=== PATIENT | female | born 1980 | race Two or more races ===

== ENCOUNTER 2021-05-04 14:17 | Emergency (ER) | payer OTHER ==
[~2021-05-04] VITALS: Ht 152.4 cm; Wt 55.8 kg
[2021-05-04] MEDS ORDERED: KETO10TA2 PO (16:16)
[2021-05-04] MEDS ORDERED: NORFLEX100MG PO (16:16)
== END 2021-05-04 18:00 | disposition home or self-care (01) ==
LOC: ER 14:17
DX: S16.1XXA Strain of muscle, fascia and tendon at neck level, initial encounter (principal); X58.XXXA Exposure to other specified factors, initial encounter; Y93.B9 Activity, other involving muscle strengthening exercises; Y92.019 Unspecified place in single-family (private) house as the place of occurrence of the external cause

== ENCOUNTER 2021-11-22 13:00 | Emergency (ER) | payer OTHER ==
[~2021-11-22] VITALS: Ht 154.9 cm; Wt 55.3 kg
[~2021-11-22 13:00] MED LIST: KETO10TA2 PO; NORFLEX100MG PO
== END 2021-11-22 18:01 | disposition home or self-care (01) ==
LOC: ER 13:00
DX: R10.2 Pelvic and perineal pain (principal); N83.209 Unspecified ovarian cyst, unspecified side

== ENCOUNTER 2021-12-25 21:19 | Emergency (ER) | payer OTHER ==
[~2021-12-25] VITALS: Ht 154.9 cm; Wt 57.2 kg
== END 2021-12-25 22:53 | disposition home or self-care (01) ==
LOC: ER 21:19
DX: B34.9 Viral infection, unspecified (principal); Z20.822 Contact with and (suspected) exposure to COVID-19

== ENCOUNTER 2024-10-02 15:10 | Emergency (ER) | payer OTHER ==
[~2024-10-02] VITALS: Ht 154.9 cm; Wt 51.3 kg
[2024-10-02 19:36] LABS: HEMATOCRIT 38.6 % (36.0-45.00); HEMOGLOBIN 13.3 g/dL (12.0-15.00); MEAN CELL VOLUME 95.3 fL (80.00-100.00); MEAN CORPUSCULAR HGB CONC 34.6 g/dl (32.0-36.0); PLATELET COUNT 326 K/uL (150-450); RED BLOOD COUNT 4.05 M/uL (4.00-6.00); RED CELL DISTRIBUTION WIDTH 13.5 % (11.5-14.5)
[2024-10-02 19:59] LABS: BILIRUBIN TOTAL 0.32 mg/dL (0.3-1.2); CALCIUM 9.3 mg/dL (8.5-10.1); CREATININE SERUM 0.74 mg/dL (0.55-1.02); GFR 85.65; GLOBULINA 3.4 G/DL (2.4-3.5); POTASSIUM 4.11 mEq/L (3.5-5.1); TOTAL PROTEIN 7.4 gm/dL (6.4-8.2)
[2024-10-02 20:02] LABS: URINE APPEARANCE Clear; URINE BILIRRUBIN Negative (NEGATIVE); URINE BLOOD Negative; URINE COLOR Yellow; URINE GLUCOSE Negative (NEGATIVE); URINE KETONE Negative (NEGATIVE); URINE LEUKOCYTE Negative; URINE NITRATE Negative; URINE PROTEIN Negative (NEGATIVE); URINE UROBILINOGEN 0.2 E.U./dl
[2024-10-02 20:06] LABS: URINE BACTERIA 1046.3 uL (0.0-1933); URINE EPITHELIAL CELLS 33.2 uL (0.0-38.8); URINE WBC 51.4 uL (0.0-23.2)
[2024-10-02 20:27] LABS: URINE CAST 0.73 uL (0.0-1.40)
[2024-10-03] MEDS ORDERED: FAMOTIDINE20 MG PO (00:10)
[2024-10-03] MEDS ORDERED: OMEPRAZOLE MAGN20 MG PO (00:10)
== END 2024-10-03 01:13 | disposition home or self-care (01) ==
LOC: ER 15:13
PROVIDERS: Preventive Medicine Public Health & General Preventive Medicine
DX: R10.9 Unspecified abdominal pain (principal); I86.8 Varicose veins of other specified sites
CPT/HCPCS: 36415; 74177; 99284; Q9965